=== PATIENT | female | born 1975 | race Caucasian/White ===

== ENCOUNTER 2018-11-14 08:25 | Day surgery (SDC) | payer OTHER ==
[~2018-11-14 08:25] MED LIST: SUCCINYLCHOLINE CHLORIDE 100 MG/5 ML SYG IV
[2018-11-14] MEDS ORDERED: CEFAZOLIN 1 GM INJ (10:01)
[2018-11-14] MEDS ORDERED: FENTAnyl 50 MCG/ML VIAL (10:01)
[2018-11-14] MEDS ORDERED: GLYCOPYRROLATE 0.4 MG INJ (10:01)
[2018-11-14] MEDS ORDERED: MIDAZOLAM 1 MG/ML 2 ML INJ (10:01)
[2018-11-14] MEDS ORDERED: ROCURONIUM 50 MG INJ (10:01)
[2018-11-14] MEDS ORDERED: NEOSTIGMINE 3 MG/3 ML SYRINGE (10:01)
[2018-11-14] MEDS ORDERED: PROPOFOL 20 ML (10:01)
[2018-11-14] MEDS ORDERED: ONDANSETRON 4 MG INJ (10:02)
[2018-11-14] MEDS ORDERED: DEXAMETHASONE 4 MG/ML 5 ML INJ (10:02)
[2018-11-14] MEDS ORDERED: EPHEDrine 25 MG/5 ML SYG IV (10:30)
[2018-11-14] MEDS ORDERED: MEPERIDINE 25 MG INJ IV (10:30)
[2018-11-14] MEDS ORDERED: IPRATROPIUM (NEB) 0.5 MG/2.5 ML AMP HHN (10:30)
[2018-11-14] MEDS ORDERED: OXYCODONE/ACETAMINOPHEN (5/325) TAB PO ×2 (10:30)
[2018-11-14] MEDS ORDERED: DIPHENHYDRAMINE 50 MG INJ IV (10:30)
[2018-11-14] MEDS ORDERED: TRIMETHOBENZAMIDE 100 MG/ML VIAL IM (10:30)
[2018-11-14] MEDS ORDERED: FENTAnyl 50 MCG/ML VIAL IV ×3 (10:30)
[2018-11-14] MEDS ORDERED: MIDAZOLAM 1 MG/ML 2 ML INJ IV (10:30)
[2018-11-14] MEDS ORDERED: ONDANSETRON 4 MG INJ IV (10:30)
[2018-11-14] MEDS ORDERED: ALBUTEROL 0.083% (NEB) 2.5 MG/3 ML AMP HHN (10:30)
[2018-11-14] MEDS ORDERED: HYDROmorphONE 1 MG/5 ML IV SYRINGE IV (10:30)
[2018-11-14] MEDS ORDERED: LABETALOL HCL 20MG INJ IV (10:30)
[2018-11-14] MEDS ORDERED: hydrALAzine 20 MG INJ IV (10:30)
[2018-11-14] MEDS: HYDROmorphONE 1 MG/5 ML IV SYRINGE IV ×2 (11:17→11:29)
[2018-11-14] MEDS: LACTATED RINGER'S 1,000 ML IV (11:17)
== END 2018-11-14 13:10 | disposition home or self-care (01) ==
LOC: SDS 08:25
DX: N93.9 Abnormal uterine and vaginal bleeding, unspecified (principal)
CPT/HCPCS: 58558; 84703; 88305